=== PATIENT | female | born 1950 | race Caucasian/White ===

== ENCOUNTER → 2016-08-09 | Outpatient (CLI) | payer OTHER ==
[~2016-08-09] MED LIST: ASCA500 PO; BEE POLLEN PO; CALC-310 PO; CHOL20007 PO; ESTR0.3T PO; IRBE-37 PO; LYSI500T34 PO; POLY335019 PO
--- NOTE | 2016-08-09 11:38 | Discharge Instructions ---
Discharge Instructions Procedure Procedure Date: Aug 09, 2016. Reason for visit: Left Mass. Discharge Discharge Date: Aug 09, 2016. Discharge Diagnosis: status post breast biopsy Instructions Activity Recommendations: Additional Limitations (see below) Return to School/Work: no limitations Recommended Home Diet: No Limitations Provider Instructions: ACTIVITY RECOMMENDATIONS: * No lifting, pushing, pulling or exercising the affected side for three days. RETURN TO SCHOOL/WORK: * You may return to work/school after the procedure, but do not perform any strenuous activities for 24 to 48 hours. MEDICATIONS: * Tylenol (two 325 mg) every four to six hours if needed for mild pain (if not allergic to Tylenol). DIET: * Resume previous diet. SPECIAL CARE INSTRUCTIONS: * Keep biopsy site dry for 24 hours. May shower after 24 hours, but do not soak (bathe) incision. * May remove Tegaderm (plastic patch) tomorrow AFTER showering. * Leave the steri-strips on for one week. Allow the steri-strips to fall off by themselves. If not off after one week, you may remove them. You may place a Bandaid crosswise over the strips, if desired. * Apply ice 10 minutes on and 10 minutes off as needed. * Wear a bra at bedtime to sleep more comfortably for 2-3 days. * Your referring physician should have the results after approximately 5 to 7 business days. * Call for unusual bleeding, fever, drainage, etc or if you have any questions call during normal business hours or after hours call Dr Herman, . FOLLOW UP VISIT: Follow-up with Referring Physician as scheduled. Vicente Whittaker Recommendations: Call your doctor if: * Temperature above 101 degrees * Pain not relieved by pain medicine ordered * There is increased drainage or redness from any incision * You have any unanswered questions or concerns. Your Doctors Instructions noted above were prepared by provider Juliana Herman. Patient Signature Section: Patient Instructions Signature Page Radha Pittman Patient (or Guardian) Signature/Date: I have read and understand the instructions given to me by my caregivers. Caregiver/RN/Doctor Signature/Date: The above-named patient and/or guardian has received patient instructions on this date. + Original Patient Signature Page (only) stays with chart. Please make copy for patient.
--- NOTE | 2016-08-09 13:45 | MAMMOGRAPHY REPORT ---
THIS REPORT HAS BEEN AMENDED. ULTRASOUND GUIDED BIOPSY LEFT BREAST: 08/09/2016 CLINICAL HISTORY: Left 11:00 breast mass. PATIENT CONSENT: The procedure, risks and benefits were discussed with the patient and informed writ ten consent was obtained. A timeout was performed immediately prior to the procedure. PROCEDURE DESCRIPTION: With ultrasound guidance, aseptic technique, and lidocaine as the local anest hetic (1% lidocaine to anesthetize the skin and 1% lidocaine with epinephrine to anesthetize the dee dee per tissues), the mass of concern was sampled 3 times with a 14-gauge Achieve biopsy needle. The ma ss was less prominent with each subsequent biopsy pass. Immediately thereafter, with ultrasound robyn dance, aseptic technique, and lidocaine as the local anesthetic, a metallic localizer clip was place d at the biopsy site. Direct pressure was applied to the site immediately post procedure and hemost asis was achieved. Postprocedure unilateral mammograms were performed to confirm placement of the c lip in the expected location of the breast mass. The patient tolerated the procedure without compli cation. She was given wound care instructions. The specimens were sent to pathology for analysis. COMPARISON: Comparison is made to exams dated: 08/01/2016 ultrasound, 08/01/2016 mammogram - [facility], 03/18/2014 mammogram, and 02/20/2013 mammogram - [facility]. IMPRESSION: ULTRASOUND GUIDED BIOPSY Ultrasound-guided core needle biopsy of the left 11:00 breast mass, with clip placement. The patien t will receive pathology results from her referring physician. Juliana Herman M.D. ah/:08/09/2016 11:43:37 Advertising Intern: Khalida Aguayo, [facility] AMENDMENT: 08/22/2016 Juliana Herman M.D. The pathology from ultrasound-guided biopsy of the left 11:00 breast mass was reviewed on 08/22/2016. The pathology shows a benign appearing vascular proliferation, which is concordant with the imagin g findings. As excision was recommended by the pathologist, consider surgical consultation for poss ible excision.
--- NOTE | 2016-08-09 13:47 | MAMMOGRAPHY REPORT ---
UNILATERAL LEFT DIGITAL DIAGNOSTIC MAMMOGRAM: 08/09/2016 CLINICAL HISTORY: Status post ultrasound-guided biopsy of the left 11:00 breast mass. TECHNIQUE: Postprocedural left CC and ML views were obtained. COMPARISON: Comparison is made to exams dated: 08/01/2016 ultrasound, 08/01/2016 mammogram - [facility], 03/18/2014 mammogram, and 02/20/2013 mammogram - [facility]. BREAST COMPOSITION: The tissue of the left breast is heterogeneously dense, which may obscure small masses. FINDINGS: A new biopsy marker clip is seen at the site of the biopsied mass in the left 11:00 breas t. No significant postbiopsy hematoma is seen. IMPRESSION: POST PROCEDURE IMAGING FOR MARKER PLACEMENT New biopsy marker clip status post ultrasound-guided biopsy of the left 11:00 breast mass, with clip placement. Pathology results are pending. Approximately 10% of breast cancers are not detected with mammography. A negative mammographic repor t should not delay biopsy if a clinically suggestive mass is present. Juliana Herman M.D. ah/:08/09/2016 11:45:04 Emd Special Education Teacher: Khalida Aguayo, [facility] BI-RADS Code: Post Procedure Imaging For Marker Placement
== END | disposition home or self-care (01) ==
LOC: C.MAMM 11:11
PROVIDERS: ATTEND Internal Medicine Critical Care Medicine
DX: R92.8 Other abnormal and inconclusive findings on diagnostic imaging of breast (principal); N63 Unspecified lump in breast

== ENCOUNTER → 2016-08-23 | Outpatient (CLI) | payer OTHER | END | disposition home or self-care (01) | LOC: C.LAB 10:41 | PROVIDERS: ATTEND Internal Medicine Critical Care Medicine | DX: J02.0 Streptococcal pharyngitis (principal) ==

== ENCOUNTER → 2017-02-11 | Outpatient (CLI) | payer OTHER | END | disposition home or self-care (01) | LOC: C.PAPS 10:01 | PROVIDERS: ATTEND Obstetrics & Gynecology | DX: Z12.4 Encounter for screening for malignant neoplasm of cervix (principal) ==

== ENCOUNTER → 2017-04-25 | Day surgery (SDC) | payer OTHER ==
[2017-04-10 11:42] VITALS: BMI 24.0
[~2017-04-25] VITALS: Ht 160 cm; Wt 62.7 kg
[~2017-04-25] MED LIST changes: +SODIUM CHLORIDE 0.9% 500ML 500 ML IV ONE
[2017-04-25 13:45] VITALS: Ht 160 cm; Wt 62.7 kg
--- NOTE | 2017-04-25 14:01 | Endo History and Physical ---
History & Physical Date of Service: Apr 25, 2017. Chief Complaint: HISTORY OF POLYPS Referring Physician: DR CHAUDHARI History of Present Illness 66 yo CF who presents for colonoscopy secondary to history of colon polyps. Past Surgical History Hx Cardiac Surgery: No Hx Internal Defibrillator: No Hx Pacemaker: No Hx Abdominal Surgery: Yes (FERMIN BSO) Hx of Implantable Prosthesis: No Hx Post-Op Nausea and Vomiting: No Hx Cancer Surgery: No Hx Thoracic Surgery: No Hx Orthopedic: No Hx Urinary Tract Surgery: No Family History Polyp Social History Smoking Status: Never Smoker Hx Substance Use: No Hx Alcohol Use: No Allergies Coded Allergies: No Known Allergies (Unverified , 04/25/17) Current Medications Reported Home Medications Medications Dose Route/Sig Max Daily Dose Days Date Category Vitamin D3 (Cholecalciferol) 2,000 Unit Tab 1 Tab PO QAM 04/10/17 Reported [Bee Pollen Granules] 1 Tbs PO QAM 04/10/17 Reported L-Lysine (Lysine Hcl) 500 Mg Tab 1 Tab PO QAM 04/10/17 Reported Calcium Citrate + D (Calcium Citrate-Vitamin D) 1 Tab Tab 1 Tab PO QAM 04/10/17 Reported Vitamin C (Ascorbic Acid) 500 Mg Tab 1,000 Mg PO QAM 04/10/17 Reported Miralax (Polyethylene Glycol 3350) 1 Pow Pow 17 Gm PO BID 04/10/17 Reported Avapro (Irbesartan) 150 Mg Tab 150 Mg PO QAM 04/10/17 Reported Premarin (Estrogens Conjugated) 0.3 Mg Tab 0.3 Mg PO QAM 04/10/17 Reported Vital Signs Weight (Kilograms): 62.73 Height (Feet): 5 Height (Inches): 3 Date Time Temp Pulse Resp B/P (MAP) Pulse Ox O2 Delivery O2 Flow Rate FiO2 04/25/17 13:52 36.6 76 16 114/72 (86) 97 Room Air Physical Exam General Appearance: WD/WN, no apparent distress Respiratory/Chest: Auscultation: breath sounds normal Cardiovascular: Heart Auscultation: RRR Abdomen: Bowel Sounds: normal Inspection & Palpation: soft, non-distended, no tenderness, guarding & rebound Assessment and Plan Assessment: 66 yo CF who presents for colonoscopy secondary to history of colon polyps. Plan: Proceed with colonoscopy.
--- NOTE | 2017-04-25 14:50 | Discharge Instructions ---
Endoscopy Patient Instructions Date / Procedure(s) Performed Apr 25, 2017. Colonoscopy Allergy Information Coded Allergies: No Known Allergies (Unverified , 04/25/17) Discharge Date / Findings Apr 25, 2017. Internal hemorrhoids Medication Instructions OK to resume all medications today as prescribed Reported Home Medications Medications Dose Route/Sig Max Daily Dose Days Date Category Vitamin D3 (Cholecalciferol) 2,000 Unit Tab 1 Tab PO QAM 04/10/17 Reported [Bee Pollen Granules] 1 Tbs PO QAM 04/10/17 Reported L-Lysine (Lysine Hcl) 500 Mg Tab 1 Tab PO QAM 04/10/17 Reported Calcium Citrate + D (Calcium Citrate-Vitamin D) 1 Tab Tab 1 Tab PO QAM 04/10/17 Reported Vitamin C (Ascorbic Acid) 500 Mg Tab 1,000 Mg PO QAM 04/10/17 Reported Miralax (Polyethylene Glycol 3350) 1 Gm PO BID 04/10/17 Reported Avapro (Irbesartan) 150 Mg Tab 150 Mg PO QAM 04/10/17 Reported Premarin (Estrogens Conjugated) 0.3 Mg Tab 0.3 Mg PO QAM 04/10/17 Reported Provider Instructions Activity Restrictions - No exercising or heavy lifting for 24 hours. - Do not drink alcohol the day of the procedure. - Do not drive a car or operate machinery until the day after the procedure. - Do not make any important decisions or sign important papers in 24 hours after the procedure. Following Day: - Return to full activity which may include returning to work/school. Diet Start your diet with liquids and light foods (jello, soup, juice, toast). Then eat your usual diet if not nauseated. Treatment For Common After Affects For mild abdominal pain, bloating, or excessive gas: - Rest - Eat lightly - Lie on right side Follow-Up Information Follow-up with DR CHAUDHARI as scheduled Anesthesia Information What You Should Know You have had a procedure that required some medicine to reduce anxiety and discomfort. This treatment is called moderate sedation. After receiving the treatment, you may be sleepy, but you will be able to breathe on your own. The effects of the treatment may last for several hours. Follow these instructions along with Activity/Diet recommendations noted above: * Do NOT do anything where dizziness or clumsiness would be dangerous. * Rest quietly at home today, then you can be up and about tomorrow. * Have a responsible person stay with you the rest of today. * You may have had an I.V. today. If so, you may take the dressing off later today. Recommendations Call your doctor if: * Trouble breathing * Continuous vomiting for more than 24 hours * Temperature above 101 degrees * Severe abdominal pain or bloating * Pain not relieved by pain medicine ordered * There is increased drainage or redness from any incision * A large amount of rectal bleeding greater than 2-3 tablespoons. (If you had a polyp/s removed or have hemorrhoids, a small amount of blood - from the rectum is to be expected.) * You have any unanswered questions or concerns. IN THE EVENT OF A SERIOUS EMERGENCY, GO TO THE NEAREST EMERGENCY ROOM Your discharge instructions were prepared by provider Tucker Hopper. Patient Instructions Signature Page Radha Pittman Patient (or Guardian) Signature/Date: I have read and understand the instructions given to me by my caregivers. Caregiver/RN/Doctor Signature/Date: The above-named patient and/or guardian has received patient instructions on this date. + Original Patient Signature Page (only) stays with chart. Please make copy for patient.
--- NOTE | 2017-04-25 15:02 | GI REPORT ---
Procedure Date: 04/25/2017 2:12 PM Procedure: Colonoscopy Indications: High risk colon cancer surveillance: Personal history of colonic polyps Medicines: Monitored Anesthesia Care Complications: No immediate complications. Estimated Blood Loss: Estimated blood loss: none. Procedure: Pre-Anesthesia Assessment: - Prior to the procedure, a History and Physical was performed, and patient medications and allergies were reviewed. The patient's tolerance of previous anesthesia was also reviewed. The risks and benefits of the procedure and the sedation options and risks were discussed with the patient. All questions were answered, and informed consent was obtained. Prior Anticoagulants: The patient has taken no previous anticoagulant or antiplatelet agents. ASA Grade Assessment: II - A patient with mild systemic disease. After reviewing the risks and benefits, the patient was deemed in satisfactory condition to undergo the procedure. After I obtained informed consent, the scope was passed under direct vision. Throughout the procedure, the patient's blood pressure, pulse, and oxygen saturations were monitored continuously. The scope was introduced through the anus and advanced to the terminal ileum. The colonoscopy was performed without difficulty. The patient tolerated the procedure well. The quality of the bowel preparation was good. The terminal ileum, ileocecal valve, appendiceal orifice, and rectum were photographed. Findings: Non-bleeding internal hemorrhoids were found during retroflexion. The hemorrhoids were small. The exam was otherwise without abnormality. Impression: - Non-bleeding internal hemorrhoids. - The examination was otherwise normal. - No specimens collected. Recommendation: - Resume previous diet. - Continue present medications. - Repeat colonoscopy in 5 years for surveillance. - Return to primary care physician as previously scheduled. Tucker Hopper, DO 04/25/2017 3:01:44 PM This report has been signed electronically. Note Initiated On: 04/25/2017 2:12 PM I attest to the content of the Intraoperative Record and orders documented therein, exceptions below
[2017-04-25 15:20] VITALS: BP 118/72; PULSE 72; O2SAT 98
--- NOTE | 2017-04-25 15:20 | Anesthesiology Progress Note ---
Anesthesia Post Op Note Date & Time Apr 25, 2017 at 15:19 Vital Signs Pain Intensity: 0 Vital Signs Past 12 Hours Date Time Temp Pulse Resp B/P (MAP) Pulse Ox O2 Delivery O2 Flow Rate FiO2 04/25/17 15:05 64 16 125/75 (92) 98 Room Air 04/25/17 14:46 68 12 90/62 (71) 99 Room Air 04/25/17 13:52 36.6 76 16 114/72 (86) 97 Room Air Notes Mental Status: alert / awake / arousable, participated in evaluation Pt Amnestic to Procedure: Yes Nausea / Vomiting: adequately controlled Pain: adequately controlled Airway Patency, RR, SpO2: stable & adequate BP & HR: stable & adequate Hydration State: stable & adequate Anesthetic Complications: no major complications apparent
== END | disposition home or self-care (01) ==
LOC: C.GI 13:36
PROVIDERS: ATTEND Internal Medicine
DX: Z12.11 Encounter for screening for malignant neoplasm of colon (principal); K64.8 Other hemorrhoids; Z86.010 Personal history of colon polyps; Z90.710 Acquired absence of both cervix and uterus; Z90.722 Acquired absence of ovaries, bilateral; Z90.79 Acquired absence of other genital organ(s)